=== PATIENT | female | born 1995 | race Caucasian/White ===

== ENCOUNTER 2023-09-01 12:03 | Emergency (ER) | payer SELFPAY ==
[~2023-09-01] VITALS: Ht 165.1 cm; Wt 76.3 kg
[2023-09-01 12:33] VITALS: BP 147/87; PULSE 83; RESP 18; TEMP 97.8; O2SAT 98
== END 2023-09-01 15:39 | disposition home or self-care (01) ==
LOC: ER 12:04
DX: M79.89 Other specified soft tissue disorders (principal); Z77.098 Contact with and (suspected) exposure to other hazardous, chiefly nonmedicinal, chemicals
CPT/HCPCS: 93930; 99284